=== PATIENT | female | born 1990 | race Caucasian/White ===

== ENCOUNTER 2020-04-29 13:26 | Emergency (ER) | payer OTHER ==
[2020-04-29 13:36] VITALS: BP 127/90; PULSE 83; TEMP 99; BMI 25.1
== END 2020-04-29 14:02 | disposition home or self-care (01) ==
LOC: FER 13:26
DX: S69.91XA Unspecified injury of right wrist, hand and finger(s), initial encounter (principal)
CPT/HCPCS: 73130-TC-RT-FY; 99283-25

== ENCOUNTER 2021-11-20 13:55 | Emergency (ER) | payer OTHER ==
[2021-11-20] MEDS ORDERED: TETANUS AND DIPHTHERIA TOXOID 0.5 ML DISP.SYRIN IM ONE (14:24)
[2021-11-20] MEDS ORDERED: EMTRICITABINE 200MG/TENOFOVIR 300MG PO ONE (14:24)
[2021-11-20] MEDS ORDERED: RALTEGRAVIR POTASSIUM 400 MG TAB PO ONE (14:24)
[2021-11-20] MEDS ORDERED: HIV POST EXPOSURE PROPHYLAXIS KIT PO ONE (14:27)
[2021-11-20 14:32] VITALS: BP 136/86; PULSE 98; RESP 18; TEMP 98.9; BMI 24.7
[2021-11-20] MEDS ORDERED: DIPHTH,PERTUSS(ACELL),TET 0.5 ML DISP.SYRIN IM ONE ×2 (14:55→15:00)
[2021-11-20] MEDS ORDERED: AMOX TR/POT CLAV 875MG/125MG TABLETS (FP) ONE (15:05)
[2021-11-20] MEDS ORDERED: AMOX TR/POT CLAV 875MG/125MG TABLETS (FP) PO ONE (15:08)
[2021-11-20 15:31] LABS: HEMATOCRIT 39.7 % (32.4-45.2); HEMOGLOBIN 14.1 G/dL (10.7-15.3); MCH 31.6 pg (25.7-33.7); MCHC 35.5 g/dl (32.0-36.0); MEAN CELL VOLUME 89.1 fl (80-96); PLATELET COUNT 215.9 10^3/uL (134-434); RBC 4.46 10^6/uL (3.60-5.2); RDW 13.4 % (11.6-15.6); WHITE BLOOD COUNT 6.7 10^3/uL (4.0-10.8)
[2021-11-20 15:36] LABS: PLATELET ESTIMATE ADEQUATE
[2021-11-20 15:44] LABS: BILIRUBIN,TOTAL 0.8 mg/dl (0.2-1); CALCIUM 9.2 mg/dl (8.5-10); CREATININE 0.6 mg/dl (0.55-1.3); PHOSPHOROUS 2.6 mg/dl (2.5-4.9); TOT PROT 7.7 g/dl (6.4-8.2); URIC ACID 5.7 mg/dl (2.6-7.2)
[2021-11-20 18:24] LABS: HIV INTERPRETATION NEGATIVE (NEGATIVE)
[2021-11-20] MEDS ORDERED: RALTEGRAVIR POTASSIUM 400 MG TAB PO SCH (22:00)
== END 2021-11-20 15:23 | disposition home or self-care (01) ==
LOC: FER 13:55
PROC: 3E0234Z Introduction of Serum, Toxoid and Vaccine into Muscle, Percutaneous Approach (ICD-10-PCS; principal; 2021-11-20)
DX: Z77.21 Contact with and (suspected) exposure to potentially hazardous body fluids (principal); W50.3XXA Accidental bite by another person, initial encounter; Y92.9 Unspecified place or not applicable
CPT/HCPCS: 36415; 80053; 82465; 82977; 83615; 84100; 84478; 84550; 84702; 85025; 86704; 86803; 87340; 87389; 87517; 90715; 99283-25

== ENCOUNTER 2021-11-25 15:59 | Emergency (ER) | payer OTHER ==
[2021-11-25 16:36] VITALS: BP 111/74; PULSE 56; RESP 18; TEMP 98.3; BMI 24.7
[2021-11-25] MEDS ORDERED: HEPATITIS B IMMUNE GLOBULIN 5 ML VIAL IM ONE (16:41)
== END 2021-11-25 18:39 | disposition home or self-care (01) ==
LOC: JERFT 15:59
PROC: 3E0234Z Introduction of Serum, Toxoid and Vaccine into Muscle, Percutaneous Approach (ICD-10-PCS; principal; 2021-11-25)
DX: Z23 Encounter for immunization (principal)
CPT/HCPCS: 99282-25

== ENCOUNTER 2023-05-22 10:27 | Emergency (ER) | payer OTHER, BC ==
[2023-05-22 10:32] VITALS: BP 127/86; PULSE 82; RESP 16; TEMP 98.8; BMI 24.7
[2023-05-22] MEDS ORDERED: IBUPROFEN 600 MG TABLET (FP) PO ONE (11:04)
[2023-05-22] MEDS ORDERED: LIDOCAINE 5% TOPICAL PATCH ONE (11:04)
[2023-05-22] MEDS: LIDOCAINE 5% TOPICAL PATCH TP ONE (11:13)
[2023-05-22] MEDS: IBUPROFEN 600 MG TABLET (FP) PO ONE (11:13)
[2023-05-22] MEDS ORDERED: LIDOCAINE PATCH REMOVAL MC SCH (22:00)
== END 2023-05-22 12:20 | disposition home or self-care (01) ==
LOC: FER 10:27
DX: M54.50 Low back pain, unspecified (principal); M25.561 Pain in right knee; S86.911A Strain of unspecified muscle(s) and tendon(s) at lower leg level, right leg, initial encounter; Y04.0XXA Assault by unarmed brawl or fight, initial encounter
CPT/HCPCS: 73562-TC-RT-FY; 99283-25